=== PATIENT | female | born 1985 | race Caucasian/White ===

== ENCOUNTER 2017-01-21 16:41 | Emergency (ER) | payer OTHER ==
[2017-01-21 16:45] VITALS: RESP 16
--- NOTE | 2017-01-21 18:17 | EDPHY ---
H & P Stated Complaint: Dizzy and light headed for 2 weeks. HPI/ROS: CHIEF COMPLAINT: Dizzy, lightheaded HISTORY OF PRESENT ILLNESS: The patient is a 31 y/o female complaining of feeling dizzy and lightheaded for 2 weeks. For the past 6 months she has had an increase in dizziness and lightheadedness, primarily when hiking. In August, 4 months ago, she did have a syncopal episode. 2 weeks ago she left for a trip to [facility] when she began feeling lightheaded after taking a ferry ride. She returned to [place] on Saturday, 2 days ago. However, her symptoms have not gone away. She describes pressure and throbbing in the front of her head. When she turns her head, she believes her peripheral vision is not normal. She does not feel like she is spinning. Took hydrocodone and Advil for pain relief. Her chronic pedal edema is aggravated when she is hot or eats a lot of sugar. Denies tobacco or illicit drug use. Denies shortness of breath, chest pain, leg pain, changes in pedal edema. REVIEW OF SYSTEMS: A ten point review of systems was performed and is negative with the exception of the items mentioned in the HPI and the following: Past medical history: Heart murmur Past surgical history: Denies Family history: Cousin had throat cancer Social history: at bedside Lives in [place] Works for [employer] General Appearance: Tearful. Alert. Vital signs reviewed. Blood pressure 139/ 88 at triage. Eyes: Pupils equal and round, no conjunctival injection, no discharge. Anicteric. ENT, Mouth: Mucous membranes are moist, no oropharyngeal erythema or edema. Neck: No lymphadenopathy, supple. Respiratory: Lungs are clear to auscultation; no wheezes, rales, or rhonchi. Cardiovascular: Regular rate and rhythm; no murmur, rub, or gallop. Gastrointestinal: Abdomen is soft and nontender, no masses or organomegaly, bowel sounds normal. Skin: Warm and dry, no rashes on exposed skin, normal color. Back: Nontender to palpation over the thoracolumbar spine. No CVAT. Extremities: No lower extremity edema, no calf tenderness or swelling. Neurological: Alert and oriented. Moving all four extremities easily and equally. Cranial nerves II through XII are examined and are intact (visual acuity not tested). Strength is 5 over 5 bilaterally with testing of all major motor groups. Sensation is intact to light touch over all 4 extremities. Deep tendon reflexes are 2+ in the biceps and knees bilaterally. Gait is normal. [id number] is performed accurately. Psychiatric: Normal affect. - Personal History LMP (Females 10-55): 8-14 Days Ago Current Tetanus Diphtheria and Acellular Pertussis (TDAP): Yes - Medical/Surgical History Hx Asthma: No Hx Chronic Respiratory Disease: No Hx Diabetes: No Hx Cardiac Disease: No Hx Renal Disease: No Hx Cirrhosis: No Hx Alcoholism: No Hx HIV/AIDS: No Hx Splenectomy or Spleen Trauma: No Other PMH: Heart murmer. - Social History Smoking Status: Never smoked Constitutional: Initial Vital Signs Temperature (C) 36.6 C 01/21/17 16:43 Heart Rate 63 01/21/17 16:43 Respiratory Rate 16 01/21/17 16:43 Blood Pressure 139/88 H 01/21/17 16:43 O2 Sat (%) 99 01/21/17 16:43 O2 Delivery Mode Room Air Allergies/Adverse Reactions: No Known Allergies Allergy (Unverified 01/21/17 16:46) Home Medications: Medication Instructions Recorded NK [No Known Home Meds] 01/21/17 Medical Decision Making - Diagnostics Imaging: I viewed and interpreted images myself ED Course/Re-evaluation: The patient is a 31 y/o female presenting with dizziness and feeling lightheaded for 2 weeks. She currently has pressure in her head. Her physical exam is normal. She has a negative PERC. I do not think that additional evaluation for PE is warranted in this setting. She has not fainted. The description of her dizziness and lightheadedness is not typical for vertigo. She is not febrile and has no meningeal signs. I do not suspect bacterial or viral meningitis. 1900: The 12 lead EKG was interpreted by myself as sinus rhythm with a rate of 51. See hard copy and/or "tracemaster" electronic copy for interpretation. No evidence of cardiac arrhythmia. 1934: Patient's labs are normal. Nothing to suggest volume depletion/blood loss. No electrolyte abnormalities. 2016: Reassessed patient and discussed laboratory and EKG findings. She states her head is now throbbing and is occasionally tearful. 2040: Portions of her history of suggestive of headache, possibly migraine. Will try headache medications 25mg IV Benadryl, 10mg Reglan, 30mg Ketoralac, and 1L IV NS administered. 2135: Reassessed patient, she is feeling better and would like to go home. I have referred her to a PCP and neurologist. Return precautions provided; patient is comfortable with this plan. Differential Diagnosis: Syncope including but not limited to vasovagal syncope, arrhythmia, dehydration , and blood loss. Headache including but not limited to subarachnoid hemorrhage , migraine headache, tension headache and infectious causes such as meningitis, pharyngitis and sinusitis. - Data Points Laboratory Results: Laboratory Results 01/21/17 18:25 01/21/17 18:25 Medications Given: Discontinued Medications Diphenhydramine HCl (Benadryl Injection) 25 mg IVP EDNOW ONE Stop: 01/21/17 20:41 Last Admin: 01/21/17 20:53 Dose: 25 mg Sodium Chloride (Ns) 1,000 mls @ 0 mls/hr IV ONCE ONE; Wide Open PRN Reason: Protocol Stop: 01/21/17 20:41 Last Admin: 01/21/17 20:55 Dose: 1,000 mls Ketorolac Tromethamine (Toradol) 30 mg IVP EDNOW ONE Stop: 01/21/17 20:41 Last Admin: 01/21/17 20:52 Dose: 30 mg Metoclopramide HCl (Reglan Injection) 10 mg IVP EDNOW ONE Stop: 01/21/17 20:41 Last Admin: 01/21/17 20:56 Dose: 10 mg Departure - Departure Disposition: Law Enforcement/Court/Snf Clinical Impression: Migraine headache Qualifiers: Migraine type: unspecified Status migrainosus presence: without status migrainosus Intractability: not intractable Qualified Code(s): G43.909 - Migraine, unspecified, not intractable, without status migrainosus Condition: Good Instructions: Migraine Headache (ED) Additional Instructions: Follow-up with your primary care physician within 72 hours. You have been referred to Dr. Phelan. Follow-up with a neurologist, you have been referred to Dr. Olivo. Return to the emergency department immediately for recurrence of headache, nausea, vomiting, numbness, weakness, neck pain, fever or other concerns. Use Tylenol and/or ibuprofen as directed. Referrals: Demetrius [place]helan [place] [place] - As per Instructions Bobby Olivo MD [Medical Doctor] - As per Instructions Report Scribed for: Nany King Report Scribed by: Judi Alegria Date of Report: 01/21/17 Time of Report: 18:35 Physician Review and Approval Statement: 01/21/17 18:16 Portions of this note were transcribed by the medical records technician. I, Dr. Nany King, personally performed the history, physical exam, and medical decision- making; and confirmed the accuracy of the information in the transcribed note.
[2017-01-21 18:51] LABS: % IMMATURE GRANULYOCYTES 0.4 % (0.0-1.1); ABSOLUTE IMMATURE GRANULOCYTES 0.03 10^3/uL (0.00-0.10); ADD DIFF? NO; ADD MORPH? NO; ADD SCAN? NO; ATYPICAL LYMPHOCYTE FLAG 0 (0-99); FRAGMENT RBC FLAG 0 (0-99); HEMATOCRIT 41.5 % (38.0-47.0); HEMOGLOBIN 14.5 g/dL (12.6-16.3); LEFT SHIFT FLG 0 (0-99); LIPEMIA HEMOLYSIS FLAG 90 (0-99); MEAN CELL HEMOGLOBIN 31.3 pg (27.9-34.1); MEAN CELL HEMOGLOBIN CONCENTR. 34.9 g/dL (32.4-36.7); MEAN CELL VOLUME 89.4 fL (81.5-99.8); PLATELET CLUMPS FLAG 0 (0-99); PLATELET COUNT 192 10^3/uL (150-400); RED BLOOD CELL COUNT 4.64 10^6/uL (4.18-5.33); RED CELL DISTRIBUTION WIDTH 11.9 % (11.5-15.2)
--- NOTE | 2017-01-21 19:03 | CPEKG ---
Heart Rate: 51 RR Interval: 1176 P-R Interval: 128 QRSD Interval: 96 QT Interval: 436 QTC Interval: 402 P [place]: 48 QRS [place]: 68 T Wave [place]: 42 EKG Severity - NORMAL ECG - EKG Impression: SINUS RHYTHM Electronically Signed By: Coleman Negro 22-Jan-2017 15:40:40
[2017-01-21 19:09] LABS: ANION GAP 12 mEq/L (8-16); CALCIUM 9.6 mg/dL (8.5-10.4); CARBON DIOXIDE 26 mEq/l (22-31); CHLORIDE 99 mEq/L (97-110); CREATININE 0.7 mg/dL (0.6-1.0); GLOMERULAR FILTRATION RATE > 60; GLUCOSE 81 mg/dL (70-100); POTASSIUM 3.8 mEq/L (3.5-5.2); SODIUM 137 mEq/L (134-144)
[2017-01-21] MEDS ORDERED: NS 1,000 ML IV ONE (20:40)
[2017-01-21] MEDS ORDERED: KETOROLAC 30 MG/1 ML SDV IVP ONE (20:40)
[2017-01-21] MEDS ORDERED: METOCLOPRAMIDE 10 MG/2 ML VIAL IVP ONE (20:40)
[2017-01-21 21:53] VITALS: BP 95/52; PULSE 55; TEMP 97.5; O2SAT 98
== END 2017-01-21 21:52 ==
PROC: 3E0337Z Introduction of Electrolytic and Water Balance Substance into Peripheral Vein, Percutaneous Approach (ICD-10-PCS; principal; 2017-01-21)
DX: G43.909 Migraine, unspecified, not intractable, without status migrainosus (principal); E86.9 Volume depletion, unspecified
CPT/HCPCS: 96374; J1200; J1885; J2765